=== PATIENT | female | born 1980 | race Caucasian/White ===

== ENCOUNTER 2018-04-03 02:49 | Inpatient (IN) | payer OTHER, BC ==
[2018-04-03] MEDS ORDERED: Lactated Ringers 1000 ML Bag* 1,000 ML IV ONE (04:42)
[2018-04-03] MEDS ORDERED: Buffered Lidocaine 1% SYRIN* 1 ML/SYRINGE INTRADERM ONE (04:42)
[2018-04-03] MEDS ORDERED: Witch Hazel PAD* JAR TOPICAL PRN (04:56)
[2018-04-03] MEDS ORDERED: OXYTOCIN* 10 UNITS/ML 1 ML VIAL IM ONE (04:56)
[2018-04-03] MEDS ORDERED: Glycerin ADULT SUPP PR PRN (04:56)
[2018-04-03] MEDS ORDERED: Dibucaine 1% 28.35 GM TUBE PR PRN (04:56)
[2018-04-03] MEDS ORDERED: Lactated Ringers 1000 ML Bag* 1,000 ML IV SCH ×2 (05:00)
--- NOTE | 2018-04-03 05:06 | HP ---
General Information - General Information Maternal Age: 37 Grav: 1 Para: 0 SAB: 0 IEA: 0 Estimated Due Date: 03/31/18 Determined By: Early Ultrasound Maternal Blood Type and Rh: A Positive - Results this Serology/RPR Result: Non-Reactive Rubella Result: Immune HBsAg Result: Negative HIV Result: Negative GBS Culture Result: Negative Past Medical History Delivery History: See Records - Primigravida Pertinent Past Medical History: Non-Contributory Pertinent Past Surgical History: None Pertinent Family History: Non-Contributory - Antepartal Records Antepartal Records: Reviewed, Uncomplicated Review of Systems Constitutional: Uncomfortable - on arrival was very uncomfortable with ctx CV Complaint: No Respiratory: Shortness of Breath: No Gastrointestinal: No Nausea/Vomiting, Normal Bowel Movement Genitourinary: Leaking Fluid, No Dysuria, No Bleeding Musculoskeletal: No Epigastric Pain, Contractions Neurological: No Headache, No Visual Changes Movement: Normal Exam Allergies/Adverse Reactions: Allergies No Known Allergies Allergy (Verified 04/03/18 04:33) Vital Signs 04/03/18 04/03/18 03:55 04:48 Temperature 99.3 F 99.6 F Pulse Rate 94 85 Respiratory 18 18 Rate Blood Pressure 138/76 121/68 (mmHg) - Measurements Height: 5 ft 5 in Weight: 72.575 kg Weight in lbs: 160.915375 Body Mass Index (BMI): 26.6 Pre- Weight: 63.503 kg Weight Gained This : 20.000 lbs and 0.002 ozs - Exam Breast: Breast Exam Deferred CVA: No CVA Tenderness Extremities: No Edema Heart: Normal Rhythm/Heart Sounds HEENT: No Significant Findings Lungs: Clear Bilaterally Rectal: Rectal Exam Deferred Reflexes: DTR 2+ Thyroid: No Thyromegaly - Abdominal Exam Abdomen Exam: Non-Tender, Fundal Height Consistent with Dates Targeted Exam Findings See L&D Outpatient Visit Provider Note for Findings: N/A Estimated Weight: 7.5# Cervical Exam: Complete Effacement: Complete Station: +2 Presenting Part: Vertex Membrane Status: SROM Amniotic Fluid Evaluation: Gross Rupture Bleeding/Discharge: Bloody Show EFM Findings - External Monitor Findings Baseline Heart Rate: 135 External Monitor Findings: Accelerations Present, No Pattern of Variable or Late Decelerations, Variability Moderate, Baseline Stable External Monitor Findings Comment: difficult to obtain continuous tracing as pt was pushing on arrival Contractions: Regular, Strong, 45-90 Seconds Contraction Frequency: 3-4 Assessment/Plan - Assessment Pt is 37 year old at 40 3/7 weeks gestation in active labor, fully dilated and beginning spontaneous bearing down efforts, no evidence of acidemia. - Obstetrical Risk Factors Obstetrical Risk Factors: Post-Dates - Plan Plan: Admit - Anticipate Vaginal Delivery - Date/Time of Admission Date of Admission: 04/03/18 Time of Admission: 02:55
--- NOTE | 2018-04-03 05:38 | PROCNOTE ---
[facility] OB: Delivery Note - Delivery A Date of : 04/03/18 Time of : 03:25 [place] Sex: Female Weight at : 3.232 kg Score 1 Minute: 8 Score 5 Minutes: 9 Gestational Age in Weeks and Days at Delivery: 40 Weeks and 3 Days Delivery Method: Spontaneous Vaginal Labor: Spontaneous Did Patient attempt ?: N/A, No Previous Amniotic Fluid: Clear Estimated Blood Loss: 500 Anesthesia/Analgesia: None Delivered By: Adali Colon - Nursery Level of Nursery: Regular/Bedside - Perineum Perineal Injury: Perineal Laceration, 2nd Degree Perineal Repair: By Delivering Practioner - Events Delivery Events of Note: Pitocin Only After Delivery, Precipitous Delivery - Additional Delivery Notes Additional Delivery Notes: Pt arrived in labor and delivery very uncomfortable and appearing to bear down with contractions. Cervical exam found pt fully dilated and beginning to push spontaneously. Pt assisted to bed and coached on pushing. She pushed effectively with good descent noted. Infant soon brought to [facility] and pt coached through slow, controlled delivery of the head. Shoulders delivered easily with next push. placed on maternal abdomen, with HR>100, dried and stimulated. Secretions suctioned with bulb syringe. Infant responded with vigorous cry, improvement in color. Soon after delivery, pt began to exhibit heavy vaginal bleeding. Cord clamped x3 and cut by 's father. Placenta then delivered, tiffanie side with trailing membranes, teased out with med clamp. Oxytocin administered via IM injection and fundal massage performed. While initially boggy, fundus quickly became firm and bleeding stopped. Examination of the perineum revealed second degree laceration, complicated by very edematous tissues. Repair performed with layers of absorbable suture resulting in good hemostasis and tissue approximation. At this time, infant and mother skin to skin, has breastfed, both in stable condition. Anticipate normal course.
[2018-04-03] MEDS: Ibuprofen TAB* 600 MG PO PRN ×2 (07:19→16:28)
[2018-04-03] MEDS: Docusate CAP* 100 MG PO SCH ×3 (07:20→21:42)
[2018-04-03] MEDS: Acetaminophen TAB* 325 MG PO PRN (13:04)
[2018-04-04 07:14] LABS: ABS Basophils 0 10^3/ul (0-0.2); ABS Eosinophils 0.1 10^3/ul (0-0.6); ABS Lymphocytes 1.7 10^3/ul (1.0-4.8); ABS Monocytes 1.2 10^3/ul (0-0.8); ABS Neutrophils 8.2 10^3/ul (1.5-7.7); ABS Nucleated RBC 0 10^3/ul; Eosinophil % 1.3 %; Hematocrit 29 % (35-47); Hemoglobin 9.5 g/dl (12.0-16.0); Lymphocyte % 15.4 %; Mean Corpuscular HGB Conc 32 g/dl (31-36); Mean Corpuscular Hemoglobin 29 pg (27-31); Mean Corpuscular Volume 91 fL (80-97); Mean Platelet Volume 11.3 fL (7.4-10.4); Nucleated Red Blood Cells % 0.1; Platelet Count 203 10^3/ul (150-450); Red Blood Count 3.22 10^6/ul (4.00-5.40); Red Cell Distribution Width 14 % (10.5-15); White Blood Count 11.3 10^3/ul (3.5-10.8)
[2018-04-04] MEDS: Ibuprofen TAB* 600 MG PO PRN (08:11)
[2018-04-04] MEDS: Docusate CAP* 100 MG PO SCH ×3 (08:12→21:21)
[2018-04-04] MEDS: Ferrous Gluconate TAB* 324 MG TAB PO SCH ×2 (08:12→21:21)
[2018-04-04] MEDS: Acetaminophen TAB* 325 MG PO PRN (21:21)
[2018-04-05] MEDS: Ferrous Gluconate TAB* 324 MG TAB PO SCH (09:28)
[2018-04-05] MEDS: Docusate CAP* 100 MG PO SCH (09:28)
[2018-04-05] MEDS: Ibuprofen TAB* 600 MG PO PRN (09:28)
[2018-04-05 09:45] VITALS: BP 116/76
== END 2018-04-05 14:51 | disposition home or self-care (01) | DRG 806 ==
LOC: MCHOBOUT 02:49 → MCHOB 02:55
PROVIDERS: ADMIT Midwife; ATTEND Midwife
PROC: 0KQM0ZZ Repair Perineum Muscle, Open Approach (ICD-10-PCS; principal; 2018-04-03)
PROC: 10E0XZZ Delivery of Products of Conception, External Approach (ICD-10-PCS; 2018-04-03)
PROC: 4A1HXCZ Monitoring of Products of Conception, Cardiac Rate, External Approach (ICD-10-PCS; 2018-04-03)
DX: O48.0 Post-term pregnancy (principal); O22.43 Hemorrhoids in pregnancy, third trimester; Z37.0 Single live birth; Z3A.40 40 weeks gestation of pregnancy; O70.1 Second degree perineal laceration during delivery; O72.1 Other immediate postpartum hemorrhage; O90.81 Anemia of the puerperium
CPT/HCPCS: 36415; 85025; A9270-GY